=== PATIENT | male | born 1950 | race Caucasian/White ===

== ENCOUNTER 2016-09-01 00:25 | Emergency (ER) | payer MEDICARE, OTHER ==
[2016-09-01 02:37] LABS: SPECIFIC GRAVITY 1.015 (1.001-1.030); URINE BILIRUBIN NEGATIVE (NEGATIVE); URINE BLOOD NEGATIVE (NEGATIVE); URINE GLUCOSE (UA) NEGATIVE (NEGATIVE); URINE LEUKOCYTE ESTERASE NEGATIVE (NEGATIVE); URINE NITRITE NEGATIVE (NEGATIVE); URINE PROTEIN TRACE (NEGATIVE); URINE UROBILINOGEN NORMAL (0-1 mg/dl)
[2016-09-01 02:38] LABS: URINE APPEARANCE CLEAR; URINE COLOR YELLOW
[2016-09-01] MEDS ORDERED: LIDOCAINE 2% UROJECT 10 ML ONE (03:06)
== END 2016-09-01 04:05 | disposition home or self-care (01) ==
LOC: ED 00:25
DX: R33.9 Retention of urine, unspecified (principal); I48.91 Unspecified atrial fibrillation; I50.9 Heart failure, unspecified; E11.9 Type 2 diabetes mellitus without complications; B19.20 Unspecified viral hepatitis C without hepatic coma
CPT/HCPCS: 81003; 99283 ×2; A9270

== ENCOUNTER 2016-10-08 17:22 | Emergency (ER) | payer MEDICARE ==
[2016-10-08] MEDS ORDERED: PHYTONADIONE 5 MG TABLET PO ONE (18:15)
== END 2016-10-08 19:01 | disposition home or self-care (01) ==
LOC: ED 17:22
DX: D68.9 Coagulation defect, unspecified (principal); I50.9 Heart failure, unspecified; I48.91 Unspecified atrial fibrillation; Z79.01 Long term (current) use of anticoagulants; E11.9 Type 2 diabetes mellitus without complications; Z79.84 Long term (current) use of oral hypoglycemic drugs; Z85.6 Personal history of leukemia
CPT/HCPCS: 99283 ×2; A9270